=== PATIENT | male | born 1955 | race Caucasian/White ===

== ENCOUNTER 2017-03-31 01:26 | Emergency (ER) | payer SELFPAY ==
[~2017-03-31] VITALS: Ht 177.8 cm; Wt 70.0 kg
[~2017-03-31 01:26] MED LIST: ACYC1CAP16 PO; HUMALOGP SQ; LANTUSP SQ; LISI-363 PO; LOVA20TA PO; TAB-TAB PO
[2017-03-31 01:31] VITALS: BP 177/86; PULSE 48; RESP 16; TEMP 98.1; O2SAT 99
--- NOTE | 2017-03-31 01:58 | RADRPT ---
EXAM DATE/TIME: 03/31/2017 01:53 [facility] COMPARISON: CHEST SINGLE AP, June 29, 2016, 12:35. INDICATIONS : Altered mental status, shortness of breath. MEDICAL HISTORY : None. SURGICAL HISTORY : None. ENCOUNTER: Initial ACUITY: 1 day PAIN SCORE: 0/10 LOCATION: Bilateral chest FINDINGS: A single view of the chest demonstrates the lungs to be symmetrically aerated without evidence of mas s, infiltrate or effusion. The cardiomediastinal contours are unremarkable. Osseous structures are intact. CONCLUSION: No acute disease. No significant change has occurred. Justin Watkins MD on March 31, 2017 at 1:56 Board Certified Radiologist. This report was verified electronically.
--- NOTE | 2017-03-31 02:21 | PD ---
HPI Chief Complaint: Diabetic Time Seen by Provider: 01:39 Travel History International Travel<30 days: No Contact w/Intl Traveler<30days: No Traveled to known affect area: No History of Present Illness HPI This is a 61-year-old gentleman with a significant insolent dependent diabetes, who presents after he was found with altered mental status by his son when his son arrived home. Patient was last seen at 7 PM normal last night. When paramedics arrived and found his blood sugar less than 20. They gave him 25 g of dextrose. The patient did wake up however he was still slightly confused. They gave him carbohydrate same which and observed him a while at home however he was still slightly confused and they made the decision to bring him here to the emergency department. When patient arrived he was awake appropriate answering questions he stated he did not eat a large meal for dinner last night. Denies any pain. He denies any fevers, chills. He denies any recent medical illness. He is able to tell me his name where he is at the date and the year. PFSH Past Medical History Blood Disorders: No Heart Rhythm Problems: No Cancer: No Cardiovascular Problems: No High Cholesterol: Yes Chemotherapy: No Chest Pain: No Congestive Heart Failure: No Diabetes: Yes Patient Takes Glucophage: No Diminished Hearing: No Endocrine: No Genitourinary: No Hepatitis: Yes (C) Hiatal Hernia: No Hypertension: Yes Immune Disorder: No Musculoskeletal: No Neurologic: No Psychiatric: No Reproductive: No Respiratory: No Immunizations Current: Yes Radiation Therapy: No Thyroid Disease: No Tetanus Vaccination: > 5 Years Influenza Vaccination: No Past Surgical History Abdominal Surgery: No AICD: No Arteriovenous Shunt: No Cardiac Surgery: No Ear Surgery: No Endocrine Surgery: No Eye Surgery: No Genitourinary Surgery: No Gynecologic Surgery: No Insulin Pump: No Joint Replacement: No Neurologic Surgery: Yes (LUMBAR LAMINECTOMY) Oral Surgery: No Pacemaker: No Thoracic Surgery: No Other Surgery: Yes (RIGHT ACL KNEE) Social History Alcohol Use: No Tobacco Use: No Substance Use: No Allergies-Medications (Allergen,Severity, Reaction): Coded Allergies: No Known Allergies (Verified , 03/31/17) Reported Meds & Prescriptions Reported Meds & Active Scripts Active Reported Multivitamin (Multivitamins) 1 Tab Tab 1 Tab PO DAILY Zovirax 200 Mg Cap (Acyclovir) 200 Mg Cap 400 Mg PO BID Lovastatin 20 Mg Tab 40 Mg PO HS Lisinopril 20 mg (Lisinopril) 20 Mg Tab 20 Mg PO DAILY Humalog 10 ml vial (Insulin Human Lispro) 100 Units/Ml Inj 0 SQ DIRECTED Lantus (Insulin Glargine) 100 Units/Ml Inj 30 Units SQ HS Review of Systems Except as stated in HPI: all other systems reviewed are Neg General / Constitutional: No: Fever, Chills HENT: No: Headaches, Lightheadedness Cardiovascular: No: Chest Pain or Discomfort, Irregular Rhythm Respiratory: No: Cough, Shortness of Breath Gastrointestinal: No: Nausea, Vomiting, Abdominal Pain Genitourinary: No: Dysuria, Decreased Urinary Output Musculoskeletal: No: Weakness, Pain Neurologic: Positive: Change in Mentation (found to have a blood sugar of less than 20), No: Weakness, Dizziness, Syncope, Incontinence, Seizures Endocrine: No: Polyuria Physical Exam Narrative GENERAL: Well-nourished, well-developed patient. SKIN: Focused skin assessment warm/dry. HEAD: Normocephalic/atraumatic. EYES: No scleral icterus. No injection or drainage. NECK: Supple, trachea midline. CARDIOVASCULAR: Regular rate and rhythm without murmurs, gallops, or rubs. RESPIRATORY: Breath sounds equal bilaterally. No accessory muscle use. GASTROINTESTINAL: Abdomen soft, non-tender, nondistended. MUSCULOSKELETAL: No cyanosis, or edema. NEUROLOGICAL: Awake and alert. Cranial nerves II through XII intact. Motor grossly within normal limits. Five out of 5 muscle strength in all muscle groups. Normal speech. Data Data Last Documented VS Vital Signs Date Time Temp Pulse Resp B/P Pulse Ox O2 Delivery O2 Flow Rate FiO2 03/31/17 03:09 54 18 169/77 99 Room Air 03/31/17 01:31 98.1 Orders Complete Blood Count With Diff (03/31/17 01:39) Basic Metabolic Panel (Bmp) (03/31/17 01:39) Urinalysis - C+S If Indicated (03/31/17 01:39) Chest, Single Ap (03/31/17 01:39) Sodium Chlorid 0.9% 500 Ml Inj (Ns 500 M (03/31/17 03:00) Blood Glucose (03/31/17 04:00) Labs Laboratory Tests Test 03/31/17 01:55 White Blood Count 8.4 TH/MM3 Red Blood Count 4.42 MIL/MM3 Hemoglobin 13.9 GM/DL Hematocrit 41.1 % Mean Corpuscular Volume 93.0 FL Mean Corpuscular Hemoglobin 31.4 PG Mean Corpuscular Hemoglobin 33.8 % Concent Red Cell Distribution Width 12.5 % Platelet Count 208 TH/MM3 Mean Platelet Volume 8.7 FL Neutrophils (%) (Auto) 64.8 % Lymphocytes (%) (Auto) 23.5 % Monocytes (%) (Auto) 8.0 % Eosinophils (%) (Auto) 2.8 % Basophils (%) (Auto) 0.9 % Neutrophils # (Auto) 5.4 TH/MM3 Lymphocytes # (Auto) 2.0 TH/MM3 Monocytes # (Auto) 0.7 TH/MM3 Eosinophils # (Auto) 0.2 TH/MM3 Basophils # (Auto) 0.1 TH/MM3 CBC Comment DIFF FINAL Differential Comment Urine Color YELLOW Urine Turbidity CLEAR Urine pH 5.5 Urine Specific [place] 1.021 Urine Protein NEG mg/dL Urine Glucose (UA) NEG mg/dL Urine Ketones TRACE mg/dL Urine Occult Blood NEG Urine Nitrite NEG Urine Bilirubin NEG Urine Urobilinogen LESS THAN 2.0 MG/DL Urine Leukocyte Esterase NEG Urine WBC LESS THAN 1 /hpf Urine Hyaline Casts 1 /lpf Urine Mucus FEW /lpf Microscopic Urinalysis Comment CULT NOT INDICATED Sodium Level 140 MEQ/L Potassium Level 4.0 MEQ/L Chloride Level 106 MEQ/L Carbon Dioxide Level 27.0 MEQ/L Anion Gap 7 MEQ/L Blood Urea Nitrogen 23 MG/DL Creatinine 1.05 MG/DL Estimat Glomerular Filtration 71 ML/MIN Rate Random Glucose 122 MG/DL Calcium Level 8.9 MG/DL [facility] Medical Decision Making Medical Screen Exam Complete: Yes Emergency Medical Condition: Yes Differential Diagnosis Hypoglycemia versus metabolic derangement versus infection versus TIA Narrative Course 61-year-old male with a history of diabetes mellitus who presents after having a hypoglycemic episode. The paramedics tried to give him carbohydrates at home after giving him the D10. He was still slightly confused so they transported him here. The patient awake alert and appropriate. He has been observed for greater than one hour. Repeat blood glucose was above 100. He'll be discharged told to make sure he eats a full meal before bedtime. He is instructed to call his primary care physician on Sunday. Diagnosis Primary Impression: Hypoglycemia Additional Instructions: Make sure you eat a full meal prior to bedtime. Call your physician on Sunday to discuss possible medication adjustments. Disposition: 01 DISCHARGE HOME Condition: Stable Julito Segura MD March 31, 2017 02:21
[2017-03-31 02:52] LABS: AUTOMATED NEUTROPHIL # 5.4 TH/MM3 (1.8-7.7); BASOPHIL # 0.1 TH/MM3 (0-0.2); BASOPHIL % 0.9 % (0.0-2.0); EOSINOPHIL # 0.2 TH/MM3 (0-0.4); EOSINOPHIL % 2.8 % (0.0-4.0); HEMATOCRIT 41.1 % (39.0-51.0); HEMO FLAGS DIFF FINAL; LYMPH % 23.5 % (9.0-44.0); MEAN CORPUSCULAR HEMOGLOBIN 31.4 PG (27.0-34.0); MEAN CORPUSCULAR HGB CONC 33.8 % (32.0-36.0); NEUT % 64.8 % (16.0-70.0); PLATELET COUNT 208 TH/MM3 (150-450); RED BLOOD COUNT 4.42 MIL/MM3 (4.50-5.90); RED CELL DISTRIBUTION WIDTH 12.5 % (11.6-17.2); WHITE BLOOD COUNT 8.4 TH/MM3 (4.0-11.0)
[2017-03-31] MEDS ORDERED: SODIUM CHLORID 0.9% 500 ML INJ 500 ML IV ONE (03:00)
[2017-03-31 03:01] LABS: BLOOD, URINE NEG (NEG); COMMENT (UR) CULT NOT INDICATED; CULTURE IF INDICATED CULT NOT INDICATED; GLUCOSE,URINE NEG (NEG); HYALINE CAST, URINE 1 /lpf (RARE); KETONE, URINE TRACE mg/dL (NEG); MUCUS URINE FEW /lpf (OCC); NITRITE,URINE NEG (NEG); PH, URINE 5.5 (5.0-8.5); URINE COLOR YELLOW (YELLW/STRAW)
[2017-03-31 03:09] VITALS: BP 169/77; PULSE 54; RESP 18; O2SAT 99
== END 2017-03-31 05:13 | disposition home or self-care (01) ==
LOC: NEPE 01:26
DX: E11.65 Type 2 diabetes mellitus with hyperglycemia (principal); E78.00 Pure hypercholesterolemia, unspecified; I10 Essential (primary) hypertension
CPT/HCPCS: 71010; 80048; 81001; 85025; 99285; J7040

== ENCOUNTER 2017-11-17 17:45 | Emergency (ER) | payer BC ==
[~2017-11-17] VITALS: Ht 180.3 cm; Wt 71.0 kg
[2017-11-17 17:48] VITALS: BP 180/77; PULSE 71; RESP 16; TEMP 98.1; O2SAT 100
[2017-11-17] MEDS ORDERED: LOVA40TA PO (17:58)
[2017-11-17] MEDS ORDERED: LISI-515 PO (17:58)
[2017-11-17] MEDS ORDERED: LANTUS2P SQ (17:58)
[2017-11-17] MEDS ORDERED: TETANUS/DIPHTHERIA TOXOID ADULT 0.5 ML VIAL IM ONE (18:15)
--- NOTE | 2017-11-17 18:16 | PD ---
HPI Chief Complaint: Injury Time Seen by Provider: 18:32 Travel History International Travel<30 days: No Contact w/Intl Traveler<30days: No Traveled to known affect area: No History of Present Illness HPI 62-year-old diabetic male presents to emergency department with a laceration to his right middle PIP after hitting himself with a hammer yesterday afternoon. Patient states that he was not going to come to the emergency department however , his family and friends decided it was again so he decided to come. Patient denies significant pain. He has good range of motion of his finger however, states he has tenderness with extreme flexion. Denies numbness or tingling. States he uses insulin, blood pressure, and cholesterol medication. Patient is right-handed [facility] Past Medical History Blood Disorders: No Heart Rhythm Problems: No Cancer: No Cardiovascular Problems: No High Cholesterol: Yes Chemotherapy: No Chest Pain: No Congestive Heart Failure: No Diabetes: Yes Patient Takes Glucophage: No Diminished Hearing: No Endocrine: No Genitourinary: No Hepatitis: Yes (C) Hiatal Hernia: No Hypertension: Yes Immune Disorder: No Musculoskeletal: No Neurologic: No Psychiatric: No Reproductive: No Respiratory: No Immunizations Current: Yes Radiation Therapy: No Thyroid Disease: No Past Surgical History Abdominal Surgery: No AICD: No Arteriovenous Shunt: No Cardiac Surgery: No Ear Surgery: No Endocrine Surgery: No Eye Surgery: No Genitourinary Surgery: No Gynecologic Surgery: No Insulin Pump: No Joint Replacement: No Neurologic Surgery: Yes (LUMBAR LAMINECTOMY) Oral Surgery: No Pacemaker: No Thoracic Surgery: No Other Surgery: Yes (RIGHT ACL KNEE) Social History Alcohol Use: No Tobacco Use: No Substance Use: No Allergies-Medications (Allergen,Severity, Reaction): Coded Allergies: No Known Allergies (Verified Adverse Reaction, Unknown, 11/17/17) Reported Meds & Prescriptions Reported Meds & Active Scripts Active Keflex (Cephalexin) 500 Mg Cap 500 Mg PO Q12H 7 Days Reported Lovastatin 40 Mg Tab 40 Mg PO DAILY Lisinopril 20 Mg Tab 20 Mg PO DAILY Lantus Inj (Insulin Glargine) 1,000 Unit/10 Ml Vial 30 Units SQ HS Review of Systems Except as stated in HPI: all other systems reviewed are Neg Physical Exam Narrative GENERAL: Well-nourished, well-developed patient. SKIN: Focused skin assessment warm/dry. HEAD: Normocephalic. EYES: No scleral icterus. No injection or drainage. NECK: Supple, trachea midline. CARDIOVASCULAR: Regular rate and rhythm without murmurs, gallops, or rubs. RESPIRATORY: Breath sounds equal bilaterally. No accessory muscle use. MUSCULOSKELETAL: No cyanosis, or edema. Right middle finger- DIP without significant ecchymosis. 1-2 cm laceration across the PIP without evidence of tendon or ligament involvement. Limited range of motion secondary to pain. BACK: Nontender without obvious deformity. No CVA tenderness. Data Data Last Documented VS Vital Signs Date Time Temp Pulse Resp B/P (MAP) Pulse Ox O2 Delivery O2 Flow Rate FiO2 11/17/17 17:48 98.1 71 16 180/77 (111) 100 Orders Orders Finger (Bht1hav) (11/17/17 ) Tetanus/Diphtheria Tox Adult (Tetanus/Di (11/17/17 18:15) Ed Discharge Order (11/17/17 18:55) MDM Medical Decision Making Medical Screen Exam Complete: Yes Emergency Medical Condition: Yes Differential Diagnosis Right middle finger laceration, fracture, open fracture Narrative Course 62-year-old diabetic male presents to emergency department with a laceration to his right PIP after hitting himself with a hammer yesterday afternoon. Patient states that he was not going to come to the emergency department however, his family and friends decided it was again so he decided to come. Patient denies significant pain. He has good range of motion of his finger however, states he has tenderness with extreme flexion. Denies numbness or tingling. States he uses insulin, blood pressure, and cholesterol medication. Vital signs stable. Physical exam findings consistent with a laceration to the PIP right middle finger Last Impressions Finger X-Ray 11/17/17 0000 Signed Impressions: Service Date/Time: Friday, November 17, 2017 18:11 - CONCLUSION: No definite fracture is seen for technique. Radiopaque density involving the right second digit distally. Clinton West MD Second digit not involved in this injury. This finding on x-ray is chronic. Patient has not complained of any pain or did not see any evidence of entry point for a density. During the interview a discussion regarding his finger, patient states that he has to work. 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 He tells me that he must be able to operate machinery with whatever 'I decided do to him today.' Because patient is a diabetic, and unwillingness to hold off on work for a few days I am more inclined to prescribe Keflex. Patient is greater than 24 hours outside of this laceration however, the laceration still appears fresh and I'm concerned about approximation and compliance. Sutures placed. Advised follow-up with primary care physician. Vies that if symptoms persist or worsen return to the emergency department. Advised on the signs of infection. Procedures Procedure Narrative LACERATION LOCATION: Right middle finger, PIP LENGTH: 1-2 cm NUMBER OF STITCHES/LYNN: 6 interrupted sutures REPAIR: The area of the laceration was prepped with Betadine and sterilely draped. A digital block was performed of the right middle finger The wound was copiously irrigated and explored without evidence of foreign body, tendon injury or neurovascular injury. The wound was closed using 5-0 prolene. This was a single layer repair. A sterile dressing was applied. The patient was advised to keep the dressing clean and dry. Patient tolerated the procedure well. Diagnosis Primary Impression: Laceration of right middle finger Qualified Codes: S61.212A - Laceration without foreign body of right middle finger without damage to nail, initial encounter Referrals: Primary Care Physician Additional Instructions: Follow up with your primary care physician within 2-3 days. If your symptoms persist or worsen, return to the emergency department. Keep area clean and dry for 24 hours. You may bathe as normal. Change dressings daily. If bleeding starts again, applied pressure and elevate the area. If he developed increased redness, swelling, or pain return to the emergency department. Elevate the joint above the heart to reduce swelling. You may use compression with Chris wrap or similar to reduce swelling. Suture removal in 7-10 days. Scripts Cephalexin (Keflex) 500 Mg Cap 500 MG PO Q12H for Infection for 7 Days, #14 CAP 0 Refills Prov: Anya Hastings 11/17/17 Disposition: 01 DISCHARGE HOME Condition: Stable Anya Hastings Nov 17, 2017 18:16
--- NOTE | 2017-11-17 18:31 | RADRPT ---
EXAM DATE/TIME: 11/17/2017 18:11 [facility] COMPARISON: No previous studies available for comparison. INDICATIONS : Right hand, third digit pain after hitting finger with a hammer. MEDICAL HISTORY : Hypertension. Diabetes mellitus type II. SURGICAL HISTORY : None. ENCOUNTER: Initial ACUITY: 2 days PAIN SCORE: 6/10 LOCATION: Right hand third digit. FINDINGS: No definite fractures, or dislocations are identified. No definite lytic or sclerotic lesion is seen . 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 CONCLUSION: No definite fracture is seen for technique. Radiopaque density involving the righ t second digit distally. Clinton West MD on November 17, 2017 at 18:28 Board Certified Radiologist. This report was verified electronically.
[2017-11-17] MEDS ORDERED: CEPH-460 PO (18:55)
== END 2017-11-17 19:05 | disposition home or self-care (01) ==
LOC: PHEFT 17:45
DX: S61.212A Laceration without foreign body of right middle finger without damage to nail, initial encounter (principal); E78.00 Pure hypercholesterolemia, unspecified; E11.9 Type 2 diabetes mellitus without complications; I10 Essential (primary) hypertension; W22.8XXA Striking against or struck by other objects, initial encounter; Z23 Encounter for immunization; Z86.19 Personal history of other infectious and parasitic diseases; Z79.4 Long term (current) use of insulin; Z79.899 Other long term (current) drug therapy
CPT/HCPCS: 12001; 73140; 90471; 90714

== ENCOUNTER 2018-03-16 18:21 | Emergency (ER) | payer BC ==
[~2018-03-16] VITALS: Ht 180.3 cm; Wt 78.0 kg
[~2018-03-16 18:21] MED LIST changes: -ACYC1CAP16 PO; +CEPH-460 PO; -HUMALOGP SQ; +LANTUS2P SQ; -LANTUSP SQ; -LISI-363 PO; +LISI-515 PO; -LOVA20TA PO; +LOVA40TA PO; -TAB-TAB PO
[2018-03-16 18:35] VITALS: BP 165/88; PULSE 67; RESP 18; TEMP 97.8; O2SAT 100
[2018-03-16] MEDS ORDERED: SODIUM CHLOR 0.9% 1000 ML INJ 1,000 ML IV ONE (18:35)
[2018-03-16 18:40] VITALS: RESP 18; O2SAT 98
--- NOTE | 2018-03-16 18:42 | PD ---
HPI Chief Complaint: Diabetic Time Seen by Provider: 18:29 Travel History International Travel<30 days: No Contact w/Intl Traveler<30days: No History of Present Illness HPI 62-year-old male with a history of diabetes mellitus type 1, hypoglycemia induced seizure activity, hypertension, and hyperlipidemia presents emergency department via [facility] after a witnessed seizure that occurred just prior to arrival. [facility] states that patient was performing long care and passed out having a seizure described as "shaky" and likely tonic-clonic lasting less than 20 seconds. They brought him in today because patient is postictal and this is abnormal for him. States normally when he has his hypoglycemia induced seizures he does not have a postictal.. [facility] states that his blood sugar was initially 17 after administration of 25 g of D10, his blood sugar increased to 65. [facility] states his vital signs and 12-lead EKG was normal. Patient states that he took his insulin today but did not eat likely resulting in this episode. Says he takes Lantus daily. His primary care physician is Dr. Giron. Patient is alert to self and location but does not know the day and answers inappropriately. He denies fever, chills, chest pain, shortness of breath. Denies nausea vomiting or diarrhea. Denies abdominal pain. He has no complaints today. PFSH Past Medical History Blood Disorders: No Heart Rhythm Problems: No Cancer: No Cardiovascular Problems: No High Cholesterol: Yes Chemotherapy: No Chest Pain: No Congestive Heart Failure: No Diabetes: Yes Diminished Hearing: No Endocrine: No Genitourinary: No Hepatitis: Yes (C) Hiatal Hernia: No Hypertension: Yes Immune Disorder: No Musculoskeletal: No Neurologic: No Psychiatric: No Reproductive: No Respiratory: No Immunizations Current: Yes Radiation Therapy: No Thyroid Disease: No Past Surgical History Abdominal Surgery: No AICD: No Arteriovenous Shunt: No Cardiac Surgery: No Ear Surgery: No Endocrine Surgery: No Eye Surgery: No Genitourinary Surgery: No Gynecologic Surgery: No Insulin Pump: No Joint Replacement: No Neurologic Surgery: Yes (LUMBAR LAMINECTOMY) Oral Surgery: No Pacemaker: No Thoracic Surgery: No Other Surgery: Yes (RIGHT ACL KNEE) Social History Alcohol Use: No Tobacco Use: No Substance Use: No Allergies-Medications (Allergen,Severity, Reaction): Coded Allergies: No Known Allergies (Verified Adverse Reaction, Unknown, 03/16/18) Reported Meds & Prescriptions Reported Meds & Active Scripts Active Reported Lovastatin 40 Mg Tab 40 Mg PO DAILY Lisinopril 20 Mg Tab 20 Mg PO DAILY Lantus Inj (Insulin Glargine) 1,000 Unit/10 Ml Vial 30 Units SQ HS Review of Systems Except as stated in HPI: all other systems reviewed are Neg Physical Exam Narrative GENERAL: Well-developed, well-nourished in no apparent distress, lethargic appearing SKIN: Focused skin assessment warm/dry. HEAD: Atraumatic. Normocephalic. EYES: Pupils equal and round. No scleral icterus. No injection or drainage. ENT: No nasal bleeding or discharge. Mucous membranes pink and moist. NECK: Trachea midline. No JVD. No lymphadenopathy CARDIOVASCULAR: Regular rate and rhythm. No murmur appreciated. RESPIRATORY: No accessory muscle use. Clear to auscultation. Breath sounds equal bilaterally. GASTROINTESTINAL: Abdomen soft, non-tender, nondistended. Hepatic and splenic margins not palpable. MUSCULOSKELETAL: No obvious deformities. No clubbing. No cyanosis. No edema. NEUROLOGICAL: Awake and alert. No obvious cranial nerve deficits. Motor grossly within normal limits. Normal speech. PSYCHIATRIC: Appropriate mood and affect; insight and judgment normal. Data Data Last Documented VS Vital Signs Date Time Temp Pulse Resp B/P (MAP) Pulse Ox O2 Delivery O2 Flow Rate FiO2 03/16/18 22:54 66 16 96/67 (77) 98 03/16/18 18:40 Room Air 03/16/18 18:35 97.8 Orders Orders Complete Blood Count With Diff (03/16/18 18:35) Electrocardiogram (03/16/18 ) Blood Glucose (03/16/18 18:35) Ecg Monitoring (03/16/18 18:35) Iv Access Insert/Monitor (03/16/18 18:35) Oximetry (03/16/18 18:35) Comprehensive Metabolic Panel (03/16/18 18:35) Sodium Chlor 0.9% 1000 Ml Inj (Ns 1000 M (03/16/18 18:35) Thiamine Inj (Thiamine Inj) (03/16/18 18:45) Dextrose 50% In Mi (Syr) Inj (D50w (Syr (03/16/18 19:00) Dextrose 50% In Mi (Syr) Inj (D50w (Syr (03/16/18 18:46) Blood Glucose (03/16/18 19:14) Ketorolac Inj (Toradol Inj) (03/16/18 19:45) Ed Discharge Order (03/16/18 22:43) Labs Laboratory Tests Test 03/16/18 18:41 White Blood Count 8.7 TH/MM3 Red Blood Count 4.43 MIL/MM3 Hemoglobin 14.4 GM/DL Hematocrit 41.3 % Mean Corpuscular Volume 93.2 FL Mean Corpuscular Hemoglobin 32.4 PG Mean Corpuscular Hemoglobin Concent 34.7 % Red Cell Distribution Width 12.8 % Platelet Count 234 TH/MM3 Mean Platelet Volume 8.2 FL Neutrophils (%) (Auto) 59.5 % Lymphocytes (%) (Auto) 23.3 % Monocytes (%) (Auto) 12.1 % Eosinophils (%) (Auto) 4.1 % Basophils (%) (Auto) 1.0 % Neutrophils # (Auto) 5.2 TH/MM3 Lymphocytes # (Auto) 2.0 TH/MM3 Monocytes # (Auto) 1.0 TH/MM3 Eosinophils # (Auto) 0.4 TH/MM3 Basophils # (Auto) 0.1 TH/MM3 CBC Comment DIFF FINAL Differential Comment Blood Urea Nitrogen 19 MG/DL Creatinine 1.12 MG/DL Random Glucose 19 MG/DL Total Protein 7.4 GM/DL Albumin 4.1 GM/DL Calcium Level 9.1 MG/DL Alkaline Phosphatase 51 U/L Aspartate Amino Transf (AST/SGOT) 29 U/L Alanine Aminotransferase (ALT/SGPT) 22 U/L Total Bilirubin 0.5 MG/DL Sodium Level 143 MEQ/L Potassium Level 4.4 MEQ/L Chloride Level 108 MEQ/L Carbon Dioxide Level 28.8 MEQ/L Anion Gap 6 MEQ/L Estimat Glomerular Filtration Rate 66 ML/MIN [facility] Medical Decision Making Medical Screen Exam Complete: Yes Emergency Medical Condition: Yes Differential Diagnosis Hypoglycemia induced seizure, seizure disorder, epilepsy, noncompliance of medications. Narrative Course 62-year-old male presents emergency department via [facility] after an apparent hypoglycemic induced seizure. Initial blood sugar 17. Repeat blood sugar after 25 g D10 at 256 according to [facility]. Repeat blood sugar in the emergency department demonstrates 24. D50 administered with improvement of his blood sugar 250. Patient given crackers and juice. His blood sugar remained over 100 while in the emergency department today. He remained stable. Family states patient appears as he normally does and does not note any lethargy or altered mental state. Patient is advised to eat a full meal when he goes home today. Advised to follow-up with primary care physician. Return for worsening or persistent symptoms. Diagnosis Primary Impression: Hypoglycemia Additional Impressions: Seizure Noncompliance with medication regimen Admitting Information Admitting Physician Requests: Admit Referrals: Primary Care Physician Additional Instructions: Take all medications as prescribed. Ensure adequate intake and proper nutrition. Follow-up with primary care physician this week. Disposition: 01 DISCHARGE HOME Condition: Stable Anya Hastings Mar 16, 2018 18:42
[2018-03-16] MEDS ORDERED: THIAMINE HCL 200 MG/2 ML VIAL IM ONE (18:45)
[2018-03-16] MEDS ORDERED: DEXTROSE 50% IN WATER 50 ML SYRINGE ONE (18:46)
[2018-03-16] MEDS ORDERED: DEXTROSE 50% IN WATER 50 ML SYRINGE IV PUSH ONE (19:00)
[2018-03-16 19:11] LABS: AUTOMATED NEUTROPHIL # 5.2 TH/MM3 (1.8-7.7); BASOPHIL # 0.1 TH/MM3 (0-0.2); EOSINOPHIL # 0.4 TH/MM3 (0-0.4); EOSINOPHIL % 4.1 % (0.0-4.0); HEMATOCRIT 41.3 % (39.0-51.0); HEMOGLOBIN 14.4 GM/DL (13.0-17.0); LYMPH % 23.3 % (9.0-44.0); MEAN CELL VOLUME 93.2 FL (80.0-100.0); MEAN CORPUSCULAR HEMOGLOBIN 32.4 PG (27.0-34.0); MEAN CORPUSCULAR HGB CONC 34.7 % (32.0-36.0); MEAN PLATELET VOLUME 8.2 FL (7.0-11.0); MONO % 12.1 % (0.0-8.0); NEUT % 59.5 % (16.0-70.0); PLATELET COUNT 234 TH/MM3 (150-450); RED BLOOD COUNT 4.43 MIL/MM3 (4.50-5.90); RED CELL DISTRIBUTION WIDTH 12.8 % (11.6-17.2); WHITE BLOOD COUNT 8.7 TH/MM3 (4.0-11.0)
[2018-03-16] MEDS ORDERED: KETOROLAC TROMETHAMINE 30 MG/ML (IVP) VIAL IV PUSH ONE (19:45)
[2018-03-16 19:53] LABS: ALBUMIN 4.1 GM/DL (3.4-5.0); ALKALINE PHOSPHATASE 51 U/L (45-117); ALT (GPT) 22 U/L (12-78); AST (GOT) 29 U/L (15-37); BICARBONATE 28.8 MEQ/L (21.0-32.0); BLOOD UREA NITROGEN 19 MG/DL (7-18); CALCIUM 9.1 MG/DL (8.5-10.1); CHLORIDE 108 MEQ/L (98-107); CREATININE 1.12 MG/DL (0.60-1.30); GLOMERULAR FILTRATION RATE 66 ML/MIN (>89); SODIUM (NA) 143 MEQ/L (136-145); TOTAL BILIRUBIN ADULT 0.5 MG/DL (0.2-1.0); TOTAL PROTEIN 7.4 GM/DL (6.4-8.2)
[2018-03-16 20:08] LABS: GLUCOSE,RANDOM 19 MG/DL (74-106)
[2018-03-16 22:54] VITALS: BP 96/67
--- NOTE | 2018-03-17 14:37 | EKG ---
Date Performed: 03/16/2018 Time Performed: 21:07:41 PTAGE: 62 years EKG: Sinus rhythm NORMAL ECG PREVIOUS TRACING : 06/29/2016 12.40 Since the previous tracing, no significant change noted DOCTOR: Francesco Herbert Interpretating Date/Time 03/17/2018 14:35:31
== END 2018-03-16 22:56 | disposition home or self-care (01) ==
LOC: NEPC 18:21
DX: E10.649 Type 1 diabetes mellitus with hypoglycemia without coma (principal); R56.9 Unspecified convulsions; Z91.14 Patient's other noncompliance with medication regimen; E78.00 Pure hypercholesterolemia, unspecified; I10 Essential (primary) hypertension; Z79.4 Long term (current) use of insulin
CPT/HCPCS: 80053; 85025; 93005; 96361; 96372; 96374; 96375; 99284; J1885; J3411; J7030

== ENCOUNTER 2018-04-09 23:52 | Emergency (ER) | payer BC ==
[~2018-04-09] VITALS: Ht 180.3 cm; Wt 77.3 kg
[~2018-04-09 23:52] MED LIST changes: -CEPH-460 PO
[2018-04-09 23:57] VITALS: BP 197/88; PULSE 55; RESP 18; O2SAT 100
--- NOTE | 2018-04-10 00:01 | PD ---
HPI Chief Complaint: Hypoglycemia Time Seen by Provider: 23:59 Travel History International Travel<30 days: No Contact w/Intl Traveler<30days: No History of Present Illness HPI 62yo M with PMH of insulin dependent DM, HTN, HLD was brought in by [facility] for hypoglycemia. Pt was found to be slump in chair not responding and blood glucose was 20. Pt woke up after 25gm of D10. He also ate half a sandwich. Pt is starting to be more awake but not fully with it so decided to bring pt in. Said last time, it took a few hours for him to be completely with it. Pt said he feels a little dizzy, like lightheaded. Said he must not have eaten much but cant remember. Denies any fever, chest pain, sob, n/v, abdominal pain , focal weakness or numbness. Pt does have some bilateral neck pain and said his neck feels stiff. As per [facility], pt did not fall or hit his head. PFSH Past Medical History Blood Disorders: No Heart Rhythm Problems: No Cancer: No Cardiovascular Problems: No High Cholesterol: Yes Chemotherapy: No Chest Pain: No Congestive Heart Failure: No Diabetes: Yes Diminished Hearing: No Endocrine: No Genitourinary: No Hepatitis: Yes (C) Hiatal Hernia: No Hypertension: Yes Immune Disorder: No Musculoskeletal: No Neurologic: No Psychiatric: No Reproductive: No Respiratory: No Immunizations Current: Yes Radiation Therapy: No Thyroid Disease: No Past Surgical History Abdominal Surgery: No AICD: No Arteriovenous Shunt: No Cardiac Surgery: No Ear Surgery: No Endocrine Surgery: No Eye Surgery: No Genitourinary Surgery: No Gynecologic Surgery: No Insulin Pump: No Joint Replacement: No Neurologic Surgery: Yes (LUMBAR LAMINECTOMY) Oral Surgery: No Pacemaker: No Thoracic Surgery: No Other Surgery: Yes (RIGHT ACL KNEE) Social History Alcohol Use: No Tobacco Use: No (quit 25 years ago) Substance Use: No Allergies-Medications (Allergen,Severity, Reaction): Coded Allergies: No Known Allergies (Verified Adverse Reaction, Unknown, 03/16/18) Reported Meds & Prescriptions Reported Meds & Active Scripts Active Reported Lovastatin 40 Mg Tab 40 Mg PO DAILY Lisinopril 20 Mg Tab 20 Mg PO DAILY Lantus Inj (Insulin Glargine) 1,000 Unit/10 Ml Vial 25 Units SQ HS sometimes less depending on bgl Review of Systems Except as stated in HPI: all other systems reviewed are Neg Physical Exam Narrative GENERAL: 62yo M not in distress. SKIN: Focused skin assessment warm/dry. HEAD: Atraumatic. Normocephalic. EYES: Pupils equal and round at 3mm bilaterally. EOMI. ENT: No nasal bleeding or discharge. Mucous membranes pink and moist. NECK: Trachea midline. No JVD. CARDIOVASCULAR: Regular rate and rhythm. No murmur appreciated. RESPIRATORY: No accessory muscle use. Clear to auscultation. Breath sounds equal bilaterally. GASTROINTESTINAL: Abdomen soft, non-tender, nondistended. MUSCULOSKELETAL: No obvious deformities. No clubbing. No cyanosis. No edema. NEUROLOGICAL: AAOx2. No obvious cranial nerve deficits. Motor grossly within normal limits in all extremities. Sensation intact. Normal speech. PSYCHIATRIC: Appropriate mood and affect; insight and judgment normal. Data Data Last Documented VS Vital Signs Date Time Temp Pulse Resp B/P (MAP) Pulse Ox O2 Delivery O2 Flow Rate FiO2 04/10/18 03:05 54 16 145/69 (94) 99 Room Air Orders Orders Electrocardiogram (04/09/18 23:59) Basic Metabolic Panel (Bmp) (04/09/18 23:59) Complete Blood Count With Diff (04/09/18 23:59) Magnesium (Mg) (04/09/18 23:59) Blood Glucose (04/09/18 23:59) Orthostatic Vital Signs (04/09/18 23:59) Acetaminophen (Tylenol) (04/10/18 00:15) Labs Laboratory Tests Test 04/10/18 00:18 White Blood Count 8.1 TH/MM3 Red Blood Count 4.20 MIL/MM3 Hemoglobin 13.7 GM/DL Hematocrit 40.4 % Mean Corpuscular Volume 96.1 FL Mean Corpuscular Hemoglobin 32.6 PG Mean Corpuscular Hemoglobin Concent 33.9 % Red Cell Distribution Width 12.7 % Platelet Count 188 TH/MM3 Mean Platelet Volume 8.4 FL Neutrophils (%) (Auto) 73.7 % Lymphocytes (%) (Auto) 17.5 % Monocytes (%) (Auto) 7.3 % Eosinophils (%) (Auto) 1.1 % Basophils (%) (Auto) 0.4 % Neutrophils # (Auto) 5.9 TH/MM3 Lymphocytes # (Auto) 1.4 TH/MM3 Monocytes # (Auto) 0.6 TH/MM3 Eosinophils # (Auto) 0.1 TH/MM3 Basophils # (Auto) 0.0 TH/MM3 CBC Comment DIFF FINAL Differential Comment Blood Urea Nitrogen 20 MG/DL Creatinine 1.03 MG/DL Random Glucose 172 MG/DL Calcium Level 8.9 MG/DL Magnesium Level 2.2 MG/DL Sodium Level 140 MEQ/L Potassium Level 4.8 MEQ/L Chloride Level 106 MEQ/L Carbon Dioxide Level 24.1 MEQ/L Anion Gap 10 MEQ/L Estimat Glomerular Filtration Rate 73 ML/MIN MDM Medical Decision Making Medical Screen Exam Complete: Yes Emergency Medical Condition: Yes Interpretation(s) EKG: Sinus bradycardia at 58bpm. Normal axis. No significant ST elevation or depression. Differential Diagnosis Hypoglycemia secondary to overmedication vs. low food intake Dizziness secondary to electrolyte abnormality vs. dehydration vs. arrhythmia Narrative Course 62yo M was brought in by [facility] for hypoglycemia. Repeat blood glucose here is 132. Pt is awake and alert and has some dizziness. Labs reviewed, no leukocytosis. H/H normal. Glucose 172. Magnesium normal. Pt given acetaminophen for neck pain which were paraspinal and pt said neck pain has resolved. No focal neurologic deficits. Pt has been observed in the ED and has no more symptoms. Repeat blood glucose is 168. Pt has been awake and alert and is at baseline mental status. He wants to go home and instructed to eat when using insulin. He is not on any oral diabetic medications. His son is here to pick him up. Return precautions given. Diagnosis Primary Impression: Hypoglycemia Patient Instructions: General Instructions Departure Forms: Tests/Procedures Additional Instructions: Please return to the ED if symptoms worsen. Please follow up with your primary care physician. Med/Other Pt SpecificInfo: No Change to Meds Disposition: 01 DISCHARGE HOME Condition: Stable Kerrie Giang DO April 10, 2018 00:01
[2018-04-10 00:05] VITALS: BP 184/79; PULSE 56; O2SAT 100
[2018-04-10] MEDS ORDERED: ACETAMINOPHEN 325 MG TAB PO ONE (00:15)
[2018-04-10 00:30] VITALS: BP 153/69; PULSE 57; O2SAT 100
[2018-04-10 00:42] LABS: AUTOMATED NEUTROPHIL # 5.9 TH/MM3 (1.8-7.7); BASOPHIL % 0.4 % (0.0-2.0); EOSINOPHIL # 0.1 TH/MM3 (0-0.4); EOSINOPHIL % 1.1 % (0.0-4.0); HEMATOCRIT 40.4 % (39.0-51.0); HEMOGLOBIN 13.7 GM/DL (13.0-17.0); LYMPH % 17.5 % (9.0-44.0); LYMPHOCYTE # 1.4 TH/MM3 (1.0-4.8); MEAN CELL VOLUME 96.1 FL (80.0-100.0); MEAN CORPUSCULAR HEMOGLOBIN 32.6 PG (27.0-34.0); MEAN CORPUSCULAR HGB CONC 33.9 % (32.0-36.0); MEAN PLATELET VOLUME 8.4 FL (7.0-11.0); MONO % 7.3 % (0.0-8.0); MONOCYTE # 0.6 TH/MM3 (0-0.9); NEUT % 73.7 % (16.0-70.0); PLATELET COUNT 188 TH/MM3 (150-450); RED CELL DISTRIBUTION WIDTH 12.7 % (11.6-17.2); WHITE BLOOD COUNT 8.1 TH/MM3 (4.0-11.0)
[2018-04-10 00:44] LABS: BICARBONATE 24.1 MEQ/L (21.0-32.0); CALCIUM 8.9 MG/DL (8.5-10.1); CREATININE 1.03 MG/DL (0.60-1.30); MAGNESIUM 2.2 MG/DL (1.5-2.5)
[2018-04-10 03:05] VITALS: BP 145/69; PULSE 54; RESP 16; O2SAT 99
[2018-04-10 04:42] VITALS: TEMP 98
--- NOTE | 2018-04-10 14:43 | EKG ---
Date Performed: 04/10/2018 Time Performed: 00:02:05 PTAGE: 62 years EKG: SINUS BRADYCARDIA POSSIBLE LEFT ATRIAL ENLARGEMENT BORDERLINE ECG No significant change fro m prior electrocardiogram. PREVIOUS TRACING : 03/16/2018 21.07 DOCTOR: Morales Harris Interpretating Date/Time 04/10/2018 14:42:18
== END 2018-04-10 05:13 | disposition home or self-care (01) ==
LOC: NEPC 23:52
DX: E11.649 Type 2 diabetes mellitus with hypoglycemia without coma (principal); M54.2 Cervicalgia; E78.00 Pure hypercholesterolemia, unspecified; I10 Essential (primary) hypertension; Z79.4 Long term (current) use of insulin; Z87.891 Personal history of nicotine dependence
CPT/HCPCS: 80048; 83735; 85025; 93005

== ENCOUNTER 2018-04-26 18:50 | Emergency (ER) | payer BC ==
[2018-04-26 18:57] VITALS: BP 174/85; PULSE 67; RESP 20; TEMP 98.3; O2SAT 98
[2018-04-26] MEDS ORDERED: HUMALOG SQ (19:01)
[2018-04-26] MEDS ORDERED: PERI0.126 SWISH-SPIT (19:04)
[2018-04-26] MEDS ORDERED: IBUP1TAB7 PO (19:04)
[2018-04-26] MEDS ORDERED: AMOX500C PO (19:04)
--- NOTE | 2018-04-26 19:04 | PD ---
HPI Chief Complaint: Oral / Dental Pain or Problem Time Seen by Provider: 18:54 Travel History International Travel<30 days: No Contact w/Intl Traveler<30days: No Traveled to known affect area: No History of Present Illness HPI 62-year-old male presents to the emergency room with complaint of right upper dental pain from a broken tooth. Dental pain started today. The tooth broke about a month ago. Denies fever, vomiting. Denies sore throat, difficulty swallowing, unusual drooling. Has not taken any medication or try any treatments to alleviate his symptoms. Symptoms are mild to moderate in severity. No known aggravating or relieving factors. Pain is constant and worsening. Describes as throbbing. No known allergies. History of hypertension and diabetes mellitus. Has no other medical complaints. No other modifying factors or associated signs and symptoms. PFSH Past Medical History Blood Disorders: No Heart Rhythm Problems: No Cancer: No Cardiovascular Problems: No High Cholesterol: Yes Chemotherapy: No Chest Pain: No Congestive Heart Failure: No Diabetes: Yes Patient Takes Glucophage: No Diminished Hearing: No Endocrine: No Genitourinary: No Hepatitis: Yes (C) Hiatal Hernia: No Hypertension: Yes Immune Disorder: No Musculoskeletal: No Neurologic: No Psychiatric: No Reproductive: No Respiratory: No Immunizations Current: Yes Radiation Therapy: No Thyroid Disease: No Past Surgical History Abdominal Surgery: No AICD: No Arteriovenous Shunt: No Cardiac Surgery: No Ear Surgery: No Endocrine Surgery: No Eye Surgery: No Genitourinary Surgery: No Gynecologic Surgery: No Insulin Pump: No Joint Replacement: No Neurologic Surgery: Yes (LUMBAR LAMINECTOMY 16yrs old) Oral Surgery: No Pacemaker: No Thoracic Surgery: No Other Surgery: Yes (RIGHT ACL KNEE) Social History Alcohol Use: No Tobacco Use: No (quit 25 years ago) Substance Use: No Allergies-Medications (Allergen,Severity, Reaction): Coded Allergies: No Known Allergies (Verified Adverse Reaction, Unknown, 04/26/18) Reported Meds & Prescriptions Reported Meds & Active Scripts Active Amoxicillin 500 Mg Cap 500 Mg PO BID 10 Days Ibuprofen 800 Mg Tab 800 Mg PO Q8H PRN Peridex Liq (Chlorhexidine Gluconate (Mouth) Liq) 0.12% Soln 15 Ml SWISH-SPIT BID 10 Days Reported Humalog Inj (Insulin Human Lispro) 1,000 Unit/10 Ml Vial Unknown Dose SQ ACHS Max dose at bedtime:( )units; sugars< 70,(0)units; sugars 150-199,(1)unit; sugars 200-249,(3)units; sugars 250-299,(5)units; sugars 300-349,(7)units; sugars more than 349,(9)units. Lovastatin 40 Mg Tab 40 Mg PO DAILY Lisinopril 20 Mg Tab 20 Mg PO DAILY Lantus Inj (Insulin Glargine) 1,000 Unit/10 Ml Vial 30 Units SQ HS sometimes less depending on bgl Review of Systems Except as stated in HPI: all other systems reviewed are Neg Physical Exam Narrative GENERAL: Well-nourished, well-developed male patient, in no acute distress; afebrile, nontoxic-appearing SKIN: Warm and dry. HEAD: Atraumatic. Normocephalic. No facial edema, erythema, tenderness on palpation. No lymphadenopathy. EYES: Pupils equal and round. No scleral icterus. No injection or drainage. ENT: Mucosa pink and moist. No erythema or exudates. No uvular edema. No uvular , palatal, or tonsillar deviation. Airway patent. EARS: Bilateral pinnae and external canals appear within normal limits. Bilateral tympanic membranes without erythema, dullness or perforation. MOUTH: Mucous membranes moist, no lesions, tongue and gums appear normal. Partially edentulous throughout. Poor dentition of existing teeth throughout. Multiple complex dental cavities noted. Tooth #6/7 with tenderness on palpation and complex dental cavity noted. Surrounding gingiva is with tenderness on palpation. Surrounding gingiva is without erythema, edema, drainage. No obvious abscess noted. NECK: Trachea midline. No lymphadenopathy. CARDIOVASCULAR: Regular rate. RESPIRATORY: No accessory muscle use. GASTROINTESTINAL: Flat. MUSCULOSKELETAL: No obvious deformities. No clubbing. No cyanosis. No edema. NEUROLOGICAL: Awake and alert. Oriented 3. No obvious cranial nerve deficits. Motor grossly within normal limits. Normal speech. PSYCHIATRIC: Appropriate mood and affect; insight and judgment normal. Data Data Last Documented VS Vital Signs Date Time Temp Pulse Resp B/P (MAP) Pulse Ox O2 Delivery O2 Flow Rate FiO2 04/26/18 18:57 98.3 67 20 174/85 (114) 98 Orders Orders Ed Discharge Order (04/26/18 19:04) Ibuprofen (Motrin) (04/26/18 19:15) [facility] Medical Decision Making Medical Screen Exam Complete: Yes Emergency Medical Condition: Yes Medical Record Reviewed: Yes Differential Diagnosis Infected dental caries, dentalgia, dental cavities, dental abscess, gingivitis Narrative Course 62-year-old male with dentalgia and complex dental cavities. No facial edema or erythema. Patient is afebrile and nontoxic-appearing. Denies fever, vomiting. Patient provided emergency dental information sheet for follow-up. Ibuprofen administered in the ER. Amoxicillin, ibuprofen, Peridex mouth rinse prescribed for home. Instructed patient to follow-up with dentist. Instructed patient to follow up with primary care provider. Patient verbalizes understanding and agreement with treatment plan. Patient is medically cleared and stable for discharge. Discussed reasons to return to the emergency department. Patient agrees with treatment plan. The patients vital signs are stable and the patient is stable for outpatient follow-up and treatment. Patient discharged home, stable and in no acute distress. Diagnosis Primary Impression: Pain, dental Additional Impression: Dental cavities Referrals: [facility] Dentist Primary Care Physician Patient Instructions: Dental Abscess (ED), Dental Caries (ED), General Instructions, Toothache (ED) Additional Instructions: Complete full course of antibiotics Ibuprofen or Tylenol as directed and as needed to reduce pain and inflammation Use Peridex as directed for oral hygiene Warm or cool compresses to the affected area Follow-up with dentist Follow-up with primary care provider Return to emergency department immediately with worsening of symptoms Med/Other Pt SpecificInfo: Prescription(s) given Scripts Amoxicillin (Amoxicillin) 500 Mg Cap 500 MG PO BID for Infection for 10 Days, #20 CAP 0 Refills Prov: Inez Mcnulty 04/26/18 Ibuprofen (Ibuprofen) 800 Mg Tab 800 MG PO Q8H Y for PAIN SCALE 1 TO 10, #20 TAB 0 Refills Prov: Inez Mcnulty 04/26/18 Chlorhexidine Gluconate (Mouth) Liq (Peridex Liq) 0.12% Soln 15 ML SWISH-SPIT BID for 10 Days, #300 ML 0 Refills Prov: Inez Mcnulty 04/26/18 Disposition: 01 DISCHARGE HOME Condition: Stable Inez Mcnulty Apr 26, 2018 19:04
[2018-04-26] MEDS ORDERED: IBUPROFEN 800 MG TAB PO ONE (19:15)
== END 2018-04-26 19:17 | disposition home or self-care (01) ==
LOC: PHEFT 18:50
DX: K08.89 Other specified disorders of teeth and supporting structures (principal); K02.9 Dental caries, unspecified; S02.5XXA Fracture of tooth (traumatic), initial encounter for closed fracture; X58.XXXA Exposure to other specified factors, initial encounter; I10 Essential (primary) hypertension; E11.9 Type 2 diabetes mellitus without complications; E78.00 Pure hypercholesterolemia, unspecified; B19.20 Unspecified viral hepatitis C without hepatic coma; Z87.891 Personal history of nicotine dependence
CPT/HCPCS: 99283